=== PATIENT | male | born 1940 | race Caucasian/White ===

== ENCOUNTER 2020-12-24 10:39 | Inpatient (IN) | payer OTHER, MEDICARE ==
[2020-12-24 10:57] VITALS: BMI 29.0
[2020-12-24 12:26] LABS: BASO % 0.9 % (0-2.0); EOS % 1.1 % (0-4.5); HEMATOCRIT 24.9 % (35.4-49); HEMOGLOBIN 7.9 GM/dL (11.7-16.9); LYMPH % 17.5 % (8-40); MCH 21.9 pg (25.7-33.7); MCHC 31.8 g/dl (32.0-35.9); MEAN CELL VOLUME 68.9 fl (80-96); MEAN PLT VOLUME 9.1 fl (7.5-11.1); MONO % 12.4 % (3.8-10.2); NEUT % 68.1 % (42.8-82.8); PLATELET COUNT 133 K/MM3 (134-434); RBC 3.61 M/mm3 (4.00-5.60); RDW 25.7 % (11.9-15.9); WHITE BLOOD COUNT 4.3 K/mm3 (4.0-10.0)
[2020-12-24 12:33] LABS: INR 1.25 (0.83-1.09); PROTHROMBIN TIME (PATIENT) 15.3 SEC (9.7-13.0)
[2020-12-24 12:46] LABS: ALBUMIN 3.3 g/dl (3.4-5.0)
[2020-12-24 12:47] LABS: BLOOD UREA NITROGEN 37.9 mg/dL (7-18)
[2020-12-24 12:50] LABS: CREATININE 1.8 mg/dL (0.55-1.3)
[2020-12-24 12:51] LABS: TOT PROT 6.1 g/dl (6.4-8.2)
[2020-12-24 12:56] LABS: ANISOCYTOSIS 2+; MACROCYTOSIS 0; PLATELET ESTIMATE DECREASED; TEAR DROP CELLS 1+
[2020-12-24 13:08] LABS: BILIRUBIN,TOTAL 0.7 mg/dL (0.2-1)
[2020-12-24] MEDS: TAMSULOSIN HCL 0.4 MG CAP PO SCH (18:43)
[2020-12-24] MEDS: FUROSEMIDE 40 MG/4 ML INJECTABLE VIAL IVPUSH SCH (18:43)
[2020-12-24 19:47] LABS: HEMATOCRIT 25.8 % (35.4-49); HEMOGLOBIN 8.4 GM/dL (11.7-16.9); MCH 23.7 pg (25.7-33.7); MCHC 32.5 g/dl (32.0-35.9); MEAN CELL VOLUME 72.7 fl (80-96); MEAN PLT VOLUME 9.1 fl (7.5-11.1); PLATELET COUNT 125 K/MM3 (134-434); RBC 3.55 M/mm3 (4.00-5.60); RDW 28.5 % (11.9-15.9); WHITE BLOOD COUNT 5.1 K/mm3 (4.0-10.0)
[2020-12-24] MEDS: hydrALAZINE HCL 50 MG TABLET (FP) PO SCH (21:21)
[2020-12-24] MEDS: METOPROLOL TARTRATE 25 MG TABLET (FP) PO SCH (21:21)
[2020-12-24] MEDS ORDERED: ATORVASTATIN CA 40 MG TABLET (FP) PO SCH (22:00)
[2020-12-25] MEDS ORDERED: CEFTRIAXONE 1 GM in DEXTROSE 5%-WATER - 50 ML IVPB ONE (05:30)
[2020-12-25] MEDS ORDERED: DEXTROSE 5%-WATER - 50 ML IVPB ONE (05:37)
[2020-12-25] MEDS ORDERED: cefTRIAXone SODIUM 1 GM VIAL ONE (05:37)
[2020-12-25] MEDS: hydrALAZINE HCL 50 MG TABLET (FP) PO SCH ×3 (06:05→14:14)
[2020-12-25] MEDS ORDERED: MIDAZOLAM HCL 2 MG/2 ML SINGLE DOSE VIAL ONE (07:07)
[2020-12-25] MEDS ORDERED: PROPOFOL 20 ML ONE (07:07)
[2020-12-25 07:29] LABS: BASO % 0.6 % (0-2.0); EOS % 1.4 % (0-4.5); HEMATOCRIT 26.9 % (35.4-49); HEMOGLOBIN 9.2 GM/dL (11.7-16.9); LYMPH % 20.2 % (8-40); MCH 26.3 pg (25.7-33.7); MCHC 34.2 g/dl (32.0-35.9); MEAN CELL VOLUME 76.8 fl (80-96); MEAN PLT VOLUME 9.1 fl (7.5-11.1); MONO % 12.8 % (3.8-10.2); PLATELET COUNT 123 K/MM3 (134-434); RDW 28.4 % (11.9-15.9); WHITE BLOOD COUNT 4.7 K/mm3 (4.0-10.0)
[2020-12-25 07:52] LABS: BLOOD UREA NITROGEN 29.2 mg/dL (7-18)
[2020-12-25 07:55] LABS: BILIRUBIN,TOTAL 2.8 mg/dL (0.2-1); CREATININE 1.6 mg/dL (0.55-1.3); TOT PROT 5.7 g/dl (6.4-8.2)
[2020-12-25] MEDS ORDERED: ONDANSETRON 4 MG/2 ML VIAL IVPUSH PRN (08:55)
[2020-12-25] MEDS ORDERED: FERROUS SO4 325 MG TABLET (FP) PO SCH ×2 (10:00→10:30)
[2020-12-25] MEDS ORDERED: amLODIPine BESYLATE 10 MG TABLET (FP) PO SCH ×2 (10:00→10:15)
[2020-12-25] MEDS ORDERED: ISOSORBIDE MONONITRATE 60 MG TAB.SR.24H (FP) PO SCH ×2 (10:00→10:30)
[2020-12-25] MEDS ORDERED: FINASTERIDE 5 MG TABLET (FP) PO SCH ×2 (10:00→10:30)
[2020-12-25] MEDS ORDERED: PATIENT'S OWN MEDICATION (NON-FORMULARY) (Ferrous Sulfate [Iron] 325 MG Tablet) PO SCH (10:00)
[2020-12-25] MEDS ORDERED: PANTOPRAZOLE 40 MG TABLET PO SCH ×2 (10:00→10:30)
[2020-12-25] MEDS ORDERED: TAMSULOSIN HCL 0.4 MG CAP PO SCH (10:15)
[2020-12-25] MEDS ORDERED: METOPROLOL TARTRATE 25 MG TABLET (FP) PO SCH (10:30)
[2020-12-25] MEDS ORDERED: FUROSEMIDE 40 MG/4 ML INJECTABLE VIAL IVPUSH SCH (10:30)
[2020-12-25] MEDS: TAMSULOSIN HCL 0.4 MG CAP PO SCH (11:36)
[2020-12-25] MEDS: FUROSEMIDE 40 MG/4 ML INJECTABLE VIAL IVPUSH SCH (11:36)
[2020-12-25] MEDS: METOPROLOL TARTRATE 25 MG TABLET (FP) PO SCH (11:36)
[2020-12-25 14:57] VITALS: BP 146/63; PULSE 60; TEMP 97.6
[2020-12-25] MEDS ORDERED: ATORVASTATIN CA 40 MG TABLET (FP) PO SCH (22:00)
== END 2020-12-25 14:58 | disposition home or self-care (01) | DRG 989 ==
LOC: SUPCPDRO 10:39 → JER 10:39 → JERBED 13:00 → J6S 16:24
PROVIDERS: ADMIT Internal Medicine; ATTEND Internal Medicine
PROC: 30233N1 Transfusion of Nonautologous Red Blood Cells into Peripheral Vein, Percutaneous Approach (ICD-10-PCS; 2020-12-24)
PROC: 0VB08ZZ Excision of Prostate, Via Natural or Artificial Opening Endoscopic (ICD-10-PCS; principal; 2020-12-25 07:30)
DX: D64.9 Anemia, unspecified (principal); N40.1 Benign prostatic hyperplasia with lower urinary tract symptoms; I10 Essential (primary) hypertension; E78.5 Hyperlipidemia, unspecified; I48.91 Unspecified atrial fibrillation; I25.10 Atherosclerotic heart disease of native coronary artery without angina pectoris; I50.9 Heart failure, unspecified
CPT/HCPCS: 36415; 36430; 71045-TC-FY; 80053; 85025; 85027; 85610; 86850; 86900; 86901; 86922; 88305-TC; 93005; 93010; 94760; 99285-25; C9803; P9058; U0003; U0005